=== PATIENT | female | born 1970 | race Caucasian/White ===

== ENCOUNTER 2022-03-26 16:36 | Emergency (ER) | payer OTHER ==
[~2022-03-26] VITALS: Ht 175.3 cm; Wt 86.2 kg
[2022-03-26] MEDS ORDERED: ONDANSETRON ODT 4 MG TAB.RAPDIS SL ONE (18:45)
[2022-03-26] MEDS ORDERED: LORAZEPAM 2 MG/1 ML VIAL IV ONE (19:00)
[2022-03-26] MEDS ORDERED: ONDANSETRON 4 MG/2 ML VIAL IV ONE (19:00)
[2022-03-26] MEDS ORDERED: HYDROMORPHONE 1 MG/1 ML DISP.SYRIN IV ONE (19:00)
[2022-03-26] MEDS ORDERED: KETOROLAC TROMETHAMINE 30 MG INJ IVP ONE (19:00)
[2022-03-26] MEDS ORDERED: ONDANSETRON 4 MG/2 ML VIAL ONE (19:03)
[2022-03-26] MEDS ORDERED: KETOROLAC TROMETHAMINE 30 MG INJ ONE (19:03)
[2022-03-26] MEDS ORDERED: HYDROMORPHONE 1 MG/1 ML DISP.SYRIN ONE (19:04)
[2022-03-26] MEDS ORDERED: LORAZEPAM 2 MG/1 ML VIAL ONE (19:20)
[2022-03-26] MEDS ORDERED: OXYC-128 PO (20:01)
--- NOTE | 2022-03-26 20:11 | NUR ---
Patient discharged to home in stable condition. Written and verbal after care instructions given. Patient verbalizes understanding of instructions. Stressed follow up or return to ER for worsening s/s. Patient is a/ox4, NAD noted. patient is able to walk with steady gait. Patient is accompanied by her daughter
[2022-03-26 20:18] VITALS: BP 110/74
== END 2022-03-26 20:19 | disposition home or self-care (01) ==
LOC: ER 16:41
DX: G43.909 Migraine, unspecified, not intractable, without status migrainosus (principal); R42 Dizziness and giddiness; Z88.0 Allergy status to penicillin; Z88.2 Allergy status to sulfonamides; Z86.69 Personal history of other diseases of the nervous system and sense organs
CPT/HCPCS: 99284; 96374; 96375; J1885; J2060; J2405; J1170; A4663

== ENCOUNTER 2023-11-10 00:23 | Emergency (ER) | payer BC, OTHER ==
[~2023-11-10] VITALS: Ht 175.3 cm; Wt 88.5 kg
[~2023-11-10 00:23] MED LIST: OXYC-128 PO
[2023-11-10] MEDS ORDERED: PROCHLORPERAZINE EDISYLATE 10 MG/2 ML VIAL ONE (01:59)
[2023-11-10] MEDS ORDERED: diphenhydrAMINE 50 MG/1 ML VIAL ONE (02:00)
[2023-11-10] MEDS ORDERED: KETOROLAC TROMETHAMINE 15 MG INJ ONE (02:00)
[2023-11-10] MEDS: diphenhydrAMINE 50 MG/1 ML VIAL IV ONE (02:01)
[2023-11-10] MEDS: PROCHLORPERAZINE EDISYLATE 10 MG/2 ML VIAL IV ONE (02:01)
[2023-11-10] MEDS: KETOROLAC TROMETHAMINE 15 MG INJ IVP ONE (02:07)
[2023-11-10] MEDS: IV NORMAL SALINE 500 ML IV ONE (02:08)
[2023-11-10 02:48] VITALS: BP 118/77; TEMP 208.4; O2SAT 98
== END 2023-11-10 02:50 | disposition home or self-care (01) ==
LOC: ER 00:26
DX: G43.909 Migraine, unspecified, not intractable, without status migrainosus (principal); F17.200 Nicotine dependence, unspecified, uncomplicated; Z90.49 Acquired absence of other specified parts of digestive tract; Z79.891 Long term (current) use of opiate analgesic; Z88.2 Allergy status to sulfonamides; Z88.0 Allergy status to penicillin
CPT/HCPCS: 99284; 96374; 96375; J1200; J1885; J0780; J7040; A4606; A4663